=== PATIENT | male | born 1960 | race American Indian/Alaskan Native ===

== ENCOUNTER 2016-05-26 20:57 | Inpatient (IN) | payer OTHER ==
[2016-05-26] MEDS ORDERED: D50W (25GM) IV PRN (21:03)
[2016-05-26] MEDS ORDERED: DULCOLAX PR PRN (21:03)
[2016-05-26] MEDS: GLUCOPHAGE PO SCH (23:17)
[2016-05-26] MEDS: LEVEMIR SUB-Q SCH (23:34)
[2016-05-26] MEDS: NOVOLOG SUB-Q SCH (23:36)
[2016-05-27 04:48] LABS: Basophils % (Auto) 0.4 % (0.0-1.8); Eosinophils % (Auto) 1.3 % (0.0-4.3); Hematocrit 44.7 % (35.5-45.6); Hemoglobin 15.2 gm/dl (11.8-15.2); Mean Corpuscular HGB Conc 34 % (32-34); Mean Corpuscular Hemoglobin 32 pg (28-32); Mean Corpuscular Volume 94 fl (84-94); Platelet Count 306 K/mm3 (140-440); Red Blood Count 4.77 M/mm3 (3.65-5.03); Red Cell Distribution Width 12.1 % (13.2-15.2); White Blood Count 9.2 K/mm3 (4.5-11.0)
[2016-05-27 05:06] LABS: Alanine Aminotransferase 44 units/L (7-56); Albumin 3.8 g/dL (3.9-5); Albumin/Globulin Ratio 1.4 %; Alkaline Phosphatase 72 units/L (35-129); Anion Gap 19 mmol/L; Bilirubin,Total 0.3 mg/dL (0.1-1.2); Blood Urea Nitrogen 16 mg/dL (9-20); Calcium 8.8 mg/dL (8.4-10.2); Carbon Dioxide 24 mmol/L (22-30); Chloride 100.2 mmol/L (98-107); Glucose 170 mg/dL (75-100); Potassium 4.2 mmol/L (3.6-5.0); Sodium 139 mmol/L (137-145); Total Protein 6.5 g/dL (6.3-8.2)
[2016-05-27] MEDS: NOVOLOG SUB-Q SCH ×5 (07:58→23:47)
[2016-05-27] MEDS: LEVEMIR SUB-Q SCH ×2 (09:00→23:47)
[2016-05-27] MEDS: NORVASC PO SCH (09:56)
[2016-05-27] MEDS: LOVENOX SUB-Q SCH (09:56)
[2016-05-27] MEDS: BABY ASPIRIN PO SCH (09:56)
[2016-05-27] MEDS: ZESTRIL PO SCH (09:57)
[2016-05-27] MEDS: GLUCOPHAGE PO SCH ×2 (09:57→17:29)
--- NOTE | 2016-05-27 16:56 | History and Physical Report ---
History of Present Illness Date: 05/27/16 Referring Facility: [facility] Date of admission: 05/26/16 20:57 Chief Complaint: left cerebellar/medulla CVA History of present illness: POST ADMISSION PHYSICIAN EVALUATION ONSET DATE: 05/16/2016 IMPAIRMENT GROUP CODE: 01.9 ETIOLOGIC DIAGNOSIS: left cerebellar/medulla CVA STATUS CHANGES SINCE PREADMISSION SCREENING: PAS has been reviewed. In comparison, pt reports intermittent cough over last several days (not associated with meals); afebrile without any noted leukocytosis. Pt evaluated by LOGISTICS LEAD on today and upgraded to regular diet with thin liquids; will follow closely. Blood sugar noted to be low before dinner; will adjust levemir dose to avoid hypoglycemia. Pt tolerated therapies well and continues with functional deficits. Pt remains an appropriate candidate for IRU admission. PREVIOUS FUNCTIONAL STATUS: Independent with ADLs, gait, transfers CURRENT FUNCTIONAL STATUS: Lindsay to modA for ADLs; per PAS, modA for gait HPI 55 y.o. left handed male who presented to [facility] with complaints of progressive left sided weakness over several days prior to admission; associated blurry vision and gait dysfunction. MRI confirmed left cerebellar/ medulla CVA. Pt was also noted to have dysarthria and dysphagia; placed on mechanical soft diet with nectar thickened liquids. Pt continued with weakness and functional deficits. Pt is now admitted to IRU for aggressive therapies and ongoing medical management. Past History Past Medical History: diabetes, hypertension Past Surgical History: Other (revascularization procedure) Social history: , lives with family, smoking. denies: alcohol abuse Family history: diabetes Medications and Allergies Allergies Allergy/AdvReac Type Severity Reaction Status Date / Time No Known Allergies Allergy Verified 05/26/16 22:33 Home Medications Medication Instructions Recorded Confirmed Last Taken Type No Known Home Medications [No 05/27/16 05/27/16 Unknown History Reported Home Medications] Active Meds: Active Medications Acetaminophen (Tylenol) 650 mg PO Q4H PRN PRN Reason: Pain MILD(1-3)/Fever >100.5/[place] Amlodipine Besylate (Norvasc) 10 mg PO QDAY [facility] Last Admin: 05/27/16 09:56 Dose: 10 mg Aspirin (Baby Aspirin) 81 mg PO QDAY [facility] Last Admin: 05/27/16 09:56 Dose: 81 mg Atorvastatin Calcium (Lipitor) 40 mg PO QHS [facility] Last Admin: 05/26/16 23:18 Dose: 40 mg Bisacodyl (Dulcolax) 10 mg [place] QDAY PRN PRN Reason: Constipation unrelieved by MOM Chlorpromazine HCl (Thorazine) 10 mg PO TID PRN PRN Reason: Hiccups Dextrose (D50w (25gm)) 50 ml IV PRN PRN PRN Reason: Hypoglycemia Enoxaparin Sodium (Lovenox) 40 mg SUB-Q QDAY [facility] Last Admin: 05/27/16 09:56 Dose: 40 mg Insulin Aspart (Novolog) 0 units SUB-Q ACHS [facility] PRN Reason: Protocol Last Admin: 05/27/16 12:20 Dose: 2 units Insulin Detemir (Levemir) 20 units SUB-Q BID [facility] Last Admin: 05/27/16 09:00 Dose: 20 units Lisinopril (Zestril) 5 mg PO QDAY [facility] Last Admin: 05/27/16 09:57 Dose: 5 mg Metformin HCl (Glucophage) 1,000 mg PO BIDDIAB [facility] Last Admin: 05/27/16 09:57 Dose: 1,000 mg Review of Systems All systems: negative Ears, nose, mouth and throat: headache Cardiovascular: lightheadedness, no chest pain Respiratory: cough with sputum Gastrointestinal: no constipation (+BM on today) Genitourinary Male: no dysuria Neurological: numbness (left extremities) Exam - Constitutional Vitals: Vital Signs - 12hr 05/27/16 05/27/16 05/27/16 08:00 09:56 09:57 Temperature 98.3 F Pulse Rate 100 H 100 H Pulse Rate [ 100 H Left Brachial] Respiratory 18 Rate Blood Pressure 135/90 135/90 Blood Pressure 135/90 [Left Arm] O2 Sat by Pulse 100 Oximetry 05/27/16 10:00 Temperature Pulse Rate Pulse Rate [ Left Brachial] Respiratory Rate Blood Pressure Blood Pressure [Left Arm] O2 Sat by Pulse 100 Oximetry General appearance: no acute distress, other (sitting up in bed) - EENT Eyes: EOM intact ENT: hearing intact - Neck Neck: supple, normal ROM - Respiratory Respiratory effort: normal Respiratory: bilateral: CTA - Cardiovascular Rhythm: regular Heart Sounds: Present: S1 & S2 - Extremities Extremities: No edema - Gastrointestinal General gastrointestinal: Present: soft, non-tender, non-distended, normal bowel sounds - Integumentary Integumentary: Present: clear - Musculoskeletal Musculoskeletal: left sided weakness (4/5, decreased coordination) - Neurologic Neurologic: CNII-XII intact, other (decreased sensation on left extremities) - Psychiatric Psychiatric: appropriate mood/affect, intact judgment & insight, memory intact, cooperative - Allied health notes FIMS assesment as documented by PT/OT/ST: Grooming Grooming FIM Score 5. Supervision ([place] applies toothpaste or opens containers.) Toileting Toileting FIM Score 4. Minimal Assistance (Patient = 75% or more. Needs touching.) Social interaction/Memory/Problem solving Social Interaction FIM Score 6. Mod. [place] (Mostly appropriate. May need meds. No supv.) Memory FIM Score 3. Moderate Assistance (Recognizes and remembers 50-74%.) Problem Solving FIM Score 3. Moderate Assistance (Solves routine problems 50-74%.) Transfers Bed/Chair/Wheelchair Transfers 4. Minimal Assistance (Patient = 75% or more. FIM Score Needs touching.) Toilet Transfers FIM Score 3. Moderate Assistance (Patient = 50% or more. Some lifting.) Shower Transfers FIM Score 3. Moderate Assistance (Patient = 50% or more. Some lifting.) Eating Eating FIM Score 5. Supervision/Set-Up (Needs help w/ containers , cutting meat, etc.) Dressing-Upper body Upper Body Dressing FIM Score 5. Supv./Set-Up ([place] sets out clothes or applies pros./orth.) Dressing-lower body Lower Body Dressing FIM Score 3. Moderate Assistance (Patient = 50% or more) - Labs CBC & Chem 7: 05/27/16 04:23 05/27/16 04:23 Labs: Laboratory Results - last 72 hr 05/26/16 05/27/16 05/27/16 23:17 04:23 04:23 WBC 9.2 RBC 4.77 Hgb 15.2 Hct 44.7 MCV 94 MCH 32 MCHC 34 RDW 12.1 L Plt Count 306 Lymph % (Auto) 19.7 Mcclain % (Auto) 9.5 H Eos % (Auto) 1.3 Baso % (Auto) 0.4 Lymph # 1.8 Mcclain # 0.9 H Eos # 0.1 Baso # 0.0 Seg Neutrophils % 69.1 Seg Neutrophils # 6.4 Sodium 139 Potassium 4.2 Chloride 100.2 Carbon Dioxide 24 Anion Gap 19 BUN 16 Creatinine 0.8 Estimated GFR > 60 BUN/Creatinine Ratio 20.00 Glucose 170 H POC Glucose 221 H Calcium 8.8 Total Bilirubin 0.3 AST 19 ALT 44 Alkaline Phosphatase 72 Total Protein 6.5 Albumin 3.8 L Albumin/Globulin Ratio 1.4 05/27/16 05/27/16 06:49 11:39 WBC RBC Hgb Hct MCV MCH MCHC RDW Plt Count Lymph % (Auto) [place]clain % (Auto) Eos % (Auto) Baso % (Auto) Lymph # Mcclain # Eos # Baso # Seg Neutrophils % Seg Neutrophils # Sodium Potassium Chloride Carbon Dioxide Anion Gap BUN Creatinine Estimated GFR BUN/Creatinine Ratio Glucose POC Glucose 149 H 217 H Calcium Total Bilirubin AST ALT Alkaline Phosphatase Total Protein Albumin Albumin/Globulin Ratio Assessment and Plan Assessment and plan: 55 y.o. left handed male with acute left cerebellar/medulla CVA, left hemiparesis, resolved dysphagia, gait dysfunction. The patient is medically stable, however, requires ongoing medical management. Pt is appropriate for inpatient rehabilitation admission and is thought to be able to tolerate at least 3 hours of therapy a day, 5 days a week including 1 hour of physical therapy, 1 hour of occupational therapy, and 1 hour of speech therapy. Patient is able to understand and follow basic directions and has attainable rehab goals. Potential barriers/complications include falls, extension/recurrent CVA , parasthesias, aspiration pneumonia, depression, DVT, PE, hypoglycemia, hypotension, syncope. Plan 1. Rehabilitation- Pt will undergo multidisciplinary/integrative rehab PT/OT/ LOGISTICS LEAD, Nursing. Areas to be addressed include, but are not limited to PT for mobility, strengthening, transfer training, ROM, endurance, stairs, balance; OT for ADLs, household tasks, adaptive equipment; LOGISTICS LEAD for cognition, dysarthria, dysphagia, compensatory techniques; Nursing for carryover of therapies, pain control, CVA education, skin integrity, medication management, bowel/bladder management; Nutrition as needed; assessment services manager for discharge planning and equipment needs. Potential interventions include appropriate assistive device or adaptive equipment. Expected overall level of functional improvement by discharge is Lindsay to supervision for gait, transfers, and ADLs. Pt will tentatively be discharged home with outpatient PT/OT/LOGISTICS LEAD. Estimated length of stay is 1-2 weeks. 2. s/p CVA- continue ASA, statin 3. HTN- continue on current regimen; follow closely to avoid hypotension 4. DM- noted to have hypoglycemia on today; will reduce levemir and continue to follow; continue to hold januvia 5. DVT px- lovenox - Patient Problems (1) CVA (cerebral vascular accident) Current Visit: Yes Status: Acute Qualifiers: CVA mechanism: C Precerebral and cerebral artery: P Laterality of affected vessel: L (2) Left sided cerebral hemisphere cerebrovascular accident (CVA) Current Visit: Yes Status: Acute (3) 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 (CVA) Current Visit: Yes Status: Acute (4) Cognitive deficit following cerebrovascular accident (CVA) Current Visit: Yes Status: Acute (5) Abnormality of gait following cerebrovascular accident (CVA) Current Visit: Yes Status: Acute (6) HTN (hypertension) Current Visit: Yes Status: Chronic Qualifiers: Hypertension type: essential hypertension Qualified Code(s): I10 - Essential (primary) hypertension (7) Diabetes Current Visit: Yes Status: Chronic Qualifiers: Diabetes mellitus type: type 2 Diabetes mellitus complication status: with hyperglycemia Diabetes mellitus complication detail: D Diabetic retinopathy severity: D Proliferative retinopathy type: P Diabetes mellitus macular edema: D Diabetes mellitus long term care pharmacist insulin use: with mcc use Laterality: L Chronic kidney disease stage: C Qualified Code(s): E11.65 - Type 2 diabetes mellitus with hyperglycemia; Z79.4 - longterm (current) use of insulin
[2016-05-27] MEDS: TYLENOL PO PRN (17:27)
[2016-05-28] MEDS: NOVOLOG SUB-Q SCH ×3 (08:35→17:34)
[2016-05-28] MEDS: GLUCOPHAGE PO SCH ×2 (08:36→22:41)
[2016-05-28] MEDS: ZESTRIL PO SCH (08:37)
[2016-05-28] MEDS: NORVASC PO SCH (08:37)
[2016-05-28] MEDS: LOVENOX SUB-Q SCH (08:38)
[2016-05-28] MEDS: BABY ASPIRIN PO SCH (08:38)
[2016-05-28] MEDS: HABITROL TD SCH (08:38)
[2016-05-28] MEDS: LEVEMIR SUB-Q SCH ×2 (08:39→22:44)
[2016-05-29] MEDS: ZESTRIL PO SCH (10:31)
[2016-05-29] MEDS: HABITROL TD SCH (10:31)
[2016-05-29] MEDS: NORVASC PO SCH (10:31)
[2016-05-29] MEDS: GLUCOPHAGE PO SCH ×2 (10:32→17:27)
[2016-05-29] MEDS: BABY ASPIRIN PO SCH (10:32)
[2016-05-29] MEDS: NOVOLOG SUB-Q SCH ×5 (10:32→23:03)
[2016-05-29] MEDS: LOVENOX SUB-Q SCH (10:33)
[2016-05-29] MEDS: LEVEMIR SUB-Q SCH ×2 (10:34→22:56)
[2016-05-29] MEDS ORDERED: PHENERGAN PO PRN (11:00)
--- NOTE | 2016-05-29 14:48 | IRU Plan of Care ---
Interdisciplinary Plan of Care - IP IRU INTERDISCIPLINARY PLAN: [facility] Inpatient Rehab Unit Plan of Care IRU Interdisciplinary Care Plan Start: 05/26/16 22: 06 Freq: Admission then PRN Status: Active Document 05/29/16 09:41 DB (Rec: 05/29/16 09:47 DB [id number]) Interdisciplinary Problem List Interdisciplinary Problem List Interdisciplinary Problem List Impaired Eating/Swallowing Query Text:Answers will Trigger Problems Impaired Bathing/Grooming and Outcomes on Worklist. Impaired Dressing Impaired Mobility Impaired Transfers Impaired Toileting Impaired Expression Impaired Problem Solving Impaired Memory Knowledge Deficits Impaired Home Management Impaired Safety Medications Education Diabetes Education IRU Interdisciplinary Care Plan Therapy Services Therapy Services Will Include: Physical Therapy Query Text:Patient will be seen for a Occupational Therapy minimum of 3 hours of daily therapy 5 Speech Therapy out of 7 days a week. Therapy intensity may be adjusted within a 7 consecutive day period to effectively serve the individual needs of the patient. Treatment Frequency/Intensity/Duration Treatment Frequency 5 days per week Treatment Intensity 1 hour per discipline (PT/OT/ LEAVE MANAGER) daily Treatment Duration 10-14 days Problem Area: Eating/Swallowing Eating/Swallowing Outcomes Consume Least Restrictive Diet Eating/Swallowing Interventions Dysphagia Training Compensatory Strategies Patient/Caregiver Education Problem Area: Bathing/Grooming Bathing/Grooming Outcomes Improve Rodman w/ Grooming Improve Rodman w/ Bathing Bathing/Grooming Interventions ADL Training Problem Area: Dressing Dressing Outcomes Improve Rodman w/ UB Dressing Improve Rodman w/ LB Dressing Dressing Interventions ADL Training Neuromuscular Re-Education Balance Work Patient/Caregiver Education Problem Area: Mobility Mobility Outcomes Improve Rodman w/ Bed Mobility Improve Rodman w/ Ambulation Improve Rodman w/ Stairs /Curb Improve Rodman w/ Wheelchair Mobility Interventions Therapeutic Exercise Neuromuscular Re-Ed. Use of Assistive Devices Patient/Caregiver Education Bed Mobility Work Gait Training W/C Mobility Work Problem Area: Transfers Transfers Outcomes Improve [place]man w/ Bed Transfers Improve [place]man w/ Toilet Transfers Improve Rodman w/ Tub/ Shower Transfers Improve Rodman w/ Car Transfers Transfers Interventions Transfer Training Therapeutic Exercise Neuromuscular Re-Education Activity Tolerance Work Use of Assistive Devices Patient/Caregiver Education Problem Area: Bowel/Bladder Managment Bowel/Bladder Outcomes Bowel/Bladder Interventions Problem Area: Toileting Toileting Outcomes Improve Rodman w/ Toileting Toileting Interventions ADL Training Balance Work Use of Assistive Devices Patient/Caregiver Education Problem Area: Nutrition Nutrition Outcomes Understand and Comply w/ Diet Improve/Maintain Oral Intake Nutrition Interventions Nutritional Counseling Monitor Nutrient Intake Patient/Caregiver Education Problem Area: Comprehension Comprehension Outcomes Comprehension Interventions Problem Area: Expression Expression Outcomes Improve Intelligibility Improve Vocal Quality Expression Interventions Expressive Language Patient/Caregiver Education Problem Area: Problem Solving Problem Solving Outcomes Improve Problem Solving Problem Solving Interventions Cognitive Training Visual/Perceptual Training Safety Education Patient/Caregiver Education Problem Area: Memory Memory Outcomes Use Memory Aids Memory Interventions Cognitive Training Use of Assistive Devices ( Memory Book, etc,) Review of Precautions Patient/Caregiver Education Problem Area: Pain Management Pain Management Outcomes Pain Management Interventions Problem Area: Knowledge Deficits Knowledge Deficits Outcomes Verbalize Precautions Verbalize Understanding of S/S of Stroke Knowledge Deficits Interventions Disease/Injury/Sx. Intervention Education Medication Use Education Disease Management Education Health Maintainence Education Safety Education Problem Area: Skin/Tissue Integrity Skin/Tissue Integrity Outcomes Demonstrate Understanding of Pressure Relief Skin/Tissue Integrity Interventions Pressure Relief Instruction Positioning/Turning Problem Area: Social Interaction Social Interaction Outcomes Social Interaction Interventions Problem Area: Adjustment to Disability Adjustment to Disability Outcomes Adjustment to Disability Interventions Problem Area: Discharge Concerns Discharge Concerns Outcomes Discharge Home w/ Necessary Equipment Have Home Health/Outpatient Services Discharge Concerns Interventions Discharge Planning Family/Caregiver Conference Family/Caregiver Training Problem Area: Community Reintegration Community Reintegration Outcomes Demonstrate Understanding of Community Resources Community Reintegration Interventions Provide Community Resources Problem Area: Home Management Home Management Outcomes Home Management Interventions Problem Area: Safety Safety Outcomes Provide Safe Environment Perform Selfcare Safely Demonstrate Good Safety w/ Transfers/Mobility Safety Interventions Identify Fall Risk [place] Pt. to Environment Reduce Environmental Hazards Problem Area: Medication Education Medication Education Outcomes Patient/Caregiver will Verbalize Understanding of Medications Medication Education Interventions Explain Administration/Side Effects/Interactions Problem Area: Diabetes Education Diabetes Education Outcomes Demonstrate Knowledge of Resources Availlable in Diabetic Ed. Folder Diabetes Education Interventions Give Pt. Diabetes Education Folder Discuss Pathophysiology of Diabetes Problem Area: Oxygenation Oxygenation Outcomes Oxygenation Interventions Problem Area: Cardiovascular Cardiovascular Outcomes Cardiovascular Interventions Physician Only Medical Prognosis and Rehabilitation Patient demonstrates good Potential (Completed by Physician) rehab potential. Medical Prognosis: Good This plan of care has been developed based on the findings from the pre- admission assessment, post admission physician evaluation, information gathered from the assessments from all therapy disciplines and other pertinent clinicians. The plan of care has been reviewed and discussed in collaboration with the interdisciplinary team. The plan of care will be reviewed and updated at least weekly. 55 y.o. left handed male with acute left cerebellar/medulla CVA, left hemiparesis, resolved dysphagia, gait dysfunction. The patient remains at risk for falls, extension/recurrent CVA, parasthesias, aspiration pneumonia, depression, DVT, PE, hypoglycemia, hypotension, syncope. Pt reports intermittent nausea, hiccups; prn medications available to treat symptomatically. BP stable; blood sugars elevated, meds adjusted. Pt is tolerating therapies well; continues with functional deficits. Pt remains an appropriate candidate for IRU admission.
--- NOTE | 2016-05-29 14:52 | Progress Note ---
Assessment and Plan 55 y.o. left handed male with acute left cerebellar/medulla CVA, left hemiparesis - s/p CVA- ASA, statin - gait dysfunction secondary to CVA- ongoing gait training with PT, ambulated up to 59 feet - HTN- controlled on current regimen - DM- no further hypoglycemia; will slowly increase levemir towards home dose; continue to hold januvia - DVT px- lovenox - Patient Problems (1) CVA (cerebral vascular accident) Current Visit: Yes Status: Acute Qualifiers: CVA mechanism: C Precerebral and cerebral artery: P Laterality of affected vessel: L (2) Hemiparesis affecting left side as late effect of cerebrovascular accident ( CVA) Current Visit: Yes Status: Acute (3) 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 (CVA) Current Visit: Yes Status: Acute (4) Cognitive deficit following cerebrovascular accident (CVA) Current Visit: Yes Status: Acute (5) Abnormality of gait following cerebrovascular accident (CVA) Current Visit: Yes Status: Acute (6) HTN (hypertension) Current Visit: Yes Status: Chronic Qualifiers: Hypertension type: essential hypertension Qualified Code(s): I10 - Essential (primary) hypertension (7) Diabetes Current Visit: Yes Status: Chronic Qualifiers: Diabetes mellitus type: type 2 Diabetes mellitus complication status: with hyperglycemia Diabetes mellitus complication detail: D Diabetic retinopathy severity: D Proliferative retinopathy type: P Diabetes mellitus macular edema: D Diabetes mellitus intermodal dispatcher insulin use: with intermodal dispatcher use Laterality: L Chronic kidney disease stage: C Qualified Code(s): E11.65 - Type 2 diabetes mellitus with hyperglycemia; Z79.4 - correction (current) use of insulin Subjective Date of service: 05/29/16 Principal diagnosis: acute left cerebellar/medulla CVA Interval history: Pt seen in OT gym on this AM; F/U IPR course, s/p acute left cerebellar/medulla CVA. Pt continues with intermittent hiccups; some nausea on this AM Objective - Constitutional General appearance: Present: no acute distress, other ( present) - EENT Eyes: EOM intact ENT: hearing intact - Neck Neck: supple, normal ROM - Respiratory Respiratory effort: normal Respiratory: bilateral: CTA - Cardiovascular Rhythm: regular Heart Sounds: Present: S1 & S2 Extremities: No edema - Gastrointestinal General gastrointestinal: Present: soft, non-tender, non-distended, normal bowel sounds - Integumentary Integumentary: clear - Musculoskeletal Musculoskeletal: left sided weakness - Neurologic Neurologic: CNII-XII intact - Psychiatric Psychiatric: appropriate mood/affect, intact judgment & insight, memory intact, cooperative - Allied health notes Allied health notes reviewed: PT (min-modA for bed mobility, transfers, gait and stairs), OT (s/u to modA for ADLs) - Labs CBC & Chem 7: 05/27/16 04:23 05/27/16 04:23 Labs: Abnormal lab results 05/28/16 05/28/16 05/28/16 Range/Units 11:59 17:00 21:45 POC Glucose 234 H 207 H 333 H (70-105) 05/29/16 05/29/16 Range/Units 07:18 11:21 POC Glucose 211 H 284 H (70-105)
[2016-05-29] MEDS: THORAZINE PO PRN ×2 (14:59→20:55)
[2016-05-29] MEDS ORDERED: DESYREL PO PRN (21:59)
[2016-05-30] MEDS: ZESTRIL PO SCH (11:29)
[2016-05-30] MEDS: GLUCOPHAGE PO SCH ×2 (11:29→18:19)
[2016-05-30] MEDS: BABY ASPIRIN PO SCH (11:30)
[2016-05-30] MEDS: NORVASC PO SCH (11:30)
[2016-05-30] MEDS: LOVENOX SUB-Q SCH (11:30)
[2016-05-30] MEDS: NOVOLOG SUB-Q SCH ×4 (11:31→22:45)
[2016-05-30] MEDS: LEVEMIR SUB-Q SCH ×2 (11:32→22:44)
[2016-05-30] MEDS: HABITROL TD SCH (11:33)
[2016-05-30] MEDS ORDERED: AMBIEN PO PRN (13:00)
--- NOTE | 2016-05-30 16:30 | Progress Note ---
Assessment and Plan 55 y.o. left handed male with acute left cerebellar/medulla CVA, left hemiparesis - s/p CVA- ASA, statin - gait dysfunction secondary to CVA- tolerating gait training - hiccups- prn thorazine - HTN- add metoprolol for tachycardia; follow for hypotension - DM- elevated blood sugar on today; follow - DVT px- lovenox - Patient Problems (1) CVA (cerebral vascular accident) Current Visit: Yes Status: Acute Qualifiers: CVA mechanism: C Precerebral and cerebral artery: P Laterality of affected vessel: L (2) Hemiparesis affecting left side as late effect of cerebrovascular accident ( CVA) Current Visit: Yes Status: Acute (3) 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 (CVA) Current Visit: Yes Status: Acute (4) Cognitive deficit following cerebrovascular accident (CVA) Current Visit: Yes Status: Acute (5) Abnormality of gait following cerebrovascular accident (CVA) Current Visit: Yes Status: Acute (6) HTN (hypertension) Current Visit: Yes Status: Chronic Qualifiers: Hypertension type: essential hypertension Qualified Code(s): I10 - Essential (primary) hypertension (7) Diabetes Current Visit: Yes Status: Chronic Qualifiers: Diabetes mellitus type: type 2 Diabetes mellitus complication status: with hyperglycemia Diabetes mellitus complication detail: D Diabetic retinopathy severity: D Proliferative retinopathy type: P Diabetes mellitus macular edema: D Diabetes mellitus long lines operator insulin use: with fdc use Laterality: L Chronic kidney disease stage: C Qualified Code(s): E11.65 - Type 2 diabetes mellitus with hyperglycemia; Z79.4 - long term care social worker (current) use of insulin Subjective Date of service: 05/30/16 Principal diagnosis: acute left cerebellar/medulla CVA Interval history: Pt seen in room on today; F/U IPR course, s/p acute left cerebellar/medulla CVA. Reports some drowsiness after getting sleep aide late last night; noted to have tachycardia, denies anxiety, chest pain or shortness of breath Objective - Constitutional Vitals: Vital Signs - 12hr 05/30/16 05/30/16 08:00 11:29 Temperature 97.9 F Pulse Rate 106 H Pulse Rate [ 106 H Left Brachial] Respiratory 20 Rate Blood Pressure 134/88 Blood Pressure 134/88 [Left Arm] O2 Sat by Pulse 99 Oximetry General appearance: Present: no acute distress - EENT Eyes: EOM intact ENT: hearing intact - Neck Neck: supple, normal ROM - Respiratory Respiratory effort: normal Respiratory: bilateral: CTA - Cardiovascular Rhythm: regular Heart Sounds: Present: S1 & S2 Extremities: No edema - Gastrointestinal General gastrointestinal: Present: soft, non-tender, non-distended, normal bowel sounds - Integumentary Integumentary: clear - Musculoskeletal Musculoskeletal: left sided weakness - Neurologic Neurologic: CNII-XII intact - Psychiatric Psychiatric: appropriate mood/affect, intact judgment & insight, memory intact, cooperative - Allied health notes Allied health notes reviewed: PT (modA for stairs; min-modA for gait ), OT ( modA for transfers) - Labs CBC & Chem 7: 05/27/16 04:23 05/27/16 04:23 Labs: Abnormal lab results 05/29/16 05/29/16 05/30/16 Range/Units 16:48 21:35 06:10 POC Glucose 195 H 269 H 253 H (70-105) 05/30/16 Range/Units 11:57 POC Glucose 378 H (70-105)
[2016-05-30] MEDS: THORAZINE PO PRN (18:20)
[2016-05-30] MEDS: LOPRESSOR PO SCH (22:42)
[2016-05-31] MEDS: NOVOLOG SUB-Q SCH ×4 (09:53→23:22)
[2016-05-31] MEDS: BABY ASPIRIN PO SCH (09:54)
[2016-05-31] MEDS: GLUCOPHAGE PO SCH ×2 (09:54→17:35)
[2016-05-31] MEDS: NORVASC PO SCH (09:54)
[2016-05-31] MEDS: LOVENOX SUB-Q SCH (09:54)
[2016-05-31] MEDS: HABITROL TD SCH (09:55)
[2016-05-31] MEDS: LOPRESSOR PO SCH ×2 (09:56→23:17)
[2016-05-31] MEDS: LEVEMIR SUB-Q SCH ×2 (10:33→23:18)
--- NOTE | 2016-05-31 16:12 | Progress Note ---
Assessment and Plan 55 y.o. left handed male with acute left cerebellar/medulla CVA, left hemiparesis - s/p CVA- ASA, statin - gait dysfunction secondary to CVA- tolerating gait training - hiccups- resolved; prn thorazine - HTN- stable; improved tachycardia - DM- levemir increased on today; continue to follow - DVT px- lovenox - Patient Problems (1) CVA (cerebral vascular accident) Current Visit: Yes Status: Acute Qualifiers: CVA mechanism: C Precerebral and cerebral artery: P Laterality of affected vessel: L (2) Hemiparesis affecting left side as late effect of cerebrovascular accident ( CVA) Current Visit: Yes Status: Acute (3) 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 (CVA) Current Visit: Yes Status: Acute (4) Cognitive deficit following cerebrovascular accident (CVA) Current Visit: Yes Status: Acute (5) Abnormality of gait following cerebrovascular accident (CVA) Current Visit: Yes Status: Acute (6) HTN (hypertension) Current Visit: Yes Status: Chronic Qualifiers: Hypertension type: essential hypertension Qualified Code(s): I10 - Essential (primary) hypertension (7) Diabetes Current Visit: Yes Status: Chronic Qualifiers: Diabetes mellitus type: type 2 Diabetes mellitus complication status: with hyperglycemia Diabetes mellitus complication detail: D Diabetic retinopathy severity: D Proliferative retinopathy type: P Diabetes mellitus macular edema: D 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 Pt complains of nasal congestion; denies any chest paint/SOB; no headache. Hiccups also resolved overnight Objective - Constitutional Vitals: Vital Signs - 12hr 05/31/16 05/31/16 05/31/16 08:00 09:54 10:00 Temperature 98.2 F Pulse Rate 94 H Pulse Rate [ 94 H 94 H Left Brachial] Respiratory 16 Rate Blood Pressure 144/66 Blood Pressure 144/66 [Left Arm] O2 Sat by Pulse 100 100 Oximetry General appearance: Present: no acute distress - EENT Eyes: EOM intact ENT: hearing intact - Neck Neck: supple, normal ROM - Respiratory Respiratory effort: normal Respiratory: bilateral: CTA - Cardiovascular Rhythm: regular Heart Sounds: Present: S1 & S2 Extremities: No edema - Gastrointestinal General gastrointestinal: Present: soft, non-tender, non-distended, normal bowel sounds - Integumentary Integumentary: clear - Musculoskeletal Musculoskeletal: left sided weakness - Neurologic Neurologic: CNII-XII intact - Psychiatric Psychiatric: appropriate mood/affect, cooperative - Allied health notes Allied health notes reviewed: OT (supervision to Kathryn for ADLs) - Labs CBC & Chem 7: 05/27/16 04:23 05/27/16 04:23 Labs: Abnormal lab results 05/30/16 05/30/16 05/31/16 Range/Units 16:44 22:14 06:23 POC Glucose 267 H 245 H 239 H (70-105) 05/31/16 Range/Units 12:02 POC Glucose 364 H (70-105)
[2016-05-31] MEDS: FLONASE NS SCH (17:39)
[2016-05-31] MEDS ORDERED: AMBIEN PO SCH (21:00)
[2016-06-01] MEDS: LOVENOX SUB-Q SCH (12:04)
[2016-06-01] MEDS: GLUCOPHAGE PO SCH ×2 (12:07→17:19)
[2016-06-01] MEDS: BABY ASPIRIN PO SCH (12:07)
[2016-06-01] MEDS: LOPRESSOR PO SCH ×2 (12:08→20:48)
[2016-06-01] MEDS: TYLENOL PO PRN (12:10)
[2016-06-01] MEDS: NORVASC PO SCH (12:11)
[2016-06-01] MEDS: HABITROL TD SCH (12:17)
[2016-06-01] MEDS: NOVOLOG SUB-Q SCH ×4 (12:18→20:50)
[2016-06-01] MEDS: FLONASE NS SCH (12:18)
[2016-06-01] MEDS: LEVEMIR SUB-Q SCH ×2 (12:25→20:50)
--- NOTE | 2016-06-01 15:51 | Progress Note ---
Assessment and Plan 55 y.o. left handed male with acute left cerebellar/medulla CVA, left hemiparesis - s/p CVA- ASA, statin - gait dysfunction secondary to CVA- progressed to CGA - HTN- controlled - DM- stable on current regimen - insomnia- ambien as ordered at 8pm; discussed with nursing - DVT px- lovenox - team conference held on today- pt is Lindsay for eating; supervision for grooming , bathing, dressing; Kathryn for toileting, toilet, shower transfers; CGA for sit- stand transfers; CGA for 90 feet with RW; CGA for stairs. Barriers- insomnia and daytime drowsiness. Tentative d/c date is 06/09 - Patient Problems (1) CVA (cerebral vascular accident) Current Visit: Yes Status: Acute Qualifiers: CVA mechanism: C Precerebral and cerebral artery: P Laterality of affected vessel: L (2) Hemiparesis affecting left side as late effect of cerebrovascular accident ( CVA) Current Visit: Yes Status: Acute (3) 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 (CVA) Current Visit: Yes Status: Acute (4) Cognitive deficit following cerebrovascular accident (CVA) Current Visit: Yes Status: Acute (5) Abnormality of gait following cerebrovascular accident (CVA) Current Visit: Yes Status: Acute (6) HTN (hypertension) Current Visit: Yes Status: Chronic Qualifiers: Hypertension type: essential hypertension Qualified Code(s): I10 - Essential (primary) hypertension (7) Diabetes Current Visit: Yes Status: Chronic Qualifiers: Diabetes mellitus type: type 2 Diabetes mellitus complication status: with hyperglycemia Diabetes mellitus complication detail: D Diabetic retinopathy severity: D Proliferative retinopathy type: P Diabetes mellitus macular edema: D Diabetes mellitus long-term insulin use: with long-term use Laterality: L Chronic kidney disease stage: C Qualified Code(s): E11.65 - Type 2 diabetes mellitus with hyperglycemia; 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 Not getting sleep aid early enough at night; causing AM drowsiness, +BM on yesterday Objective - Constitutional Vitals: Vital Signs - 12hr 06/01/16 06/01/1606/01/17 07:30 12:08 12:11 Temperature 97.9 F Pulse Rate 92 H Pulse Rate [ 92 H Left Brachial] Respiratory 20 Rate Blood Pressure 133/85 133/85 Blood Pressure 133/85 [Left Arm] O2 Sat by Pulse 98 Oximetry General appearance: Present: mild distress (due to AM drowsiness) - EENT Eyes: EOM intact ENT: hearing intact - Neck Neck: supple, normal ROM - Respiratory Respiratory effort: normal Extremities: No edema - Integumentary Integumentary: clear - Musculoskeletal Musculoskeletal: left sided weakness - Neurologic Neurologic: CNII-XII intact - Psychiatric Psychiatric: appropriate mood/affect, cooperative - Labs CBC & Chem 7: 05/27/16 04:23 05/27/16 04:23 Labs: Abnormal lab results 05/31/16 05/31/16 06/01/16 Range/Units 17:12 21:39 07:03 POC Glucose 235 H 200 H 190 H (70-105) 06/01/16 Range/Units 11:58 POC Glucose 308 H (70-105)
[2016-06-01] MEDS: AMBIEN PO SCH (20:45)
[2016-06-02] MEDS: NOVOLOG SUB-Q SCH ×4 (08:43→21:48)
[2016-06-02] MEDS: LOVENOX SUB-Q SCH (08:43)
[2016-06-02] MEDS: HABITROL TD SCH (08:44)
[2016-06-02] MEDS: FLONASE NS SCH (08:45)
[2016-06-02] MEDS: TYLENOL PO PRN ×3 (08:45→21:10)
[2016-06-02] MEDS: NORVASC PO SCH (08:46)
[2016-06-02] MEDS: BABY ASPIRIN PO SCH (08:46)
[2016-06-02] MEDS: LOPRESSOR PO SCH ×2 (08:47→21:06)
[2016-06-02] MEDS: GLUCOPHAGE PO SCH ×2 (08:47→17:02)
[2016-06-02] MEDS: LEVEMIR SUB-Q SCH ×2 (08:49→21:49)
--- NOTE | 2016-06-02 16:15 | Progress Note ---
Assessment and Plan 55 y.o. left handed male with acute left cerebellar/medulla CVA, left hemiparesis - s/p CVA- ASA, statin - gait dysfunction secondary to CVA- CGA with gait and transfers - HTN- consider increasing lopressor to 25mg BID if remains elevated - DM- increase to 18U BID; pt and will need education on administering insulin as this is a new medication; nursing notified to provide education - insomnia- ambien - DVT px- lovenox - Patient Problems (1) CVA (cerebral vascular accident) Current Visit: Yes Status: Acute Qualifiers: CVA mechanism: C Precerebral and cerebral artery: P Laterality of affected vessel: L (2) Hemiparesis affecting left side as late effect of cerebrovascular accident ( CVA) Current Visit: Yes Status: Acute (3) 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 (CVA) Current Visit: Yes Status: Acute (4) Cognitive deficit following cerebrovascular accident (CVA) Current Visit: Yes Status: Acute (5) Abnormality of gait following cerebrovascular accident (CVA) Current Visit: Yes Status: Acute (6) HTN (hypertension) Current Visit: Yes Status: Chronic Qualifiers: Hypertension type: essential hypertension Qualified Code(s): I10 - Essential (primary) hypertension (7) Diabetes Current Visit: Yes Status: Chronic Qualifiers: Diabetes mellitus type: type 2 Diabetes mellitus complication status: with hyperglycemia Diabetes mellitus complication detail: D Diabetic retinopathy severity: D Proliferative retinopathy type: P Diabetes mellitus macular edema: D Diabetes mellitus nursing home insulin use: without termite technician use Laterality: L Chronic kidney disease stage: C Qualified Code(s): E11.65 - Type 2 diabetes mellitus with hyperglycemia Subjective Date of service: 06/02/16 Principal diagnosis: acute left cerebellar/medulla CVA Interval history: Pt seen this AM; F/U IPR course, s/p acute left cerebellar/medulla CVA. Much improved sleep overnight; educated about blood sugars, new to insulin during acute care course Objective - Constitutional Vitals: Vital Signs - 12hr 06/02/16 06/02/16 06/02/16 07:37 08:46 08:47 Temperature 97.6 F Pulse Rate 101 H 101 H Pulse Rate [ 101 H Left Brachial] Respiratory 20 Rate Blood Pressure 158/97 158/97 Blood Pressure 158/97 [Left Arm] O2 Sat by Pulse 98 Oximetry General appearance: Present: no acute distress - EENT Eyes: EOM intact ENT: hearing intact - Neck Neck: supple, normal ROM - Respiratory Respiratory effort: normal Respiratory: bilateral: CTA - Cardiovascular Rhythm: regular Heart Sounds: Present: S1 & S2 Extremities: No edema - Gastrointestinal General gastrointestinal: Present: soft, non-tender, non-distended, normal bowel sounds - Integumentary Integumentary: clear - Musculoskeletal Musculoskeletal: left sided weakness - Neurologic Neurologic: CNII-XII intact - Psychiatric Psychiatric: appropriate mood/affect, cooperative - Allied health notes Allied health notes reviewed: nursing (Kathryn for toileting), PT (CGA for transfers and gait) - Labs CBC & Chem 7: 05/27/16 04:23 05/27/16 04:23 Labs: Abnormal lab results 06/01/16 06/01/16 06/01/16 Range/Units 17:13 20:20 21:37 POC Glucose 276 H 178 H 166 H (70-105) 06/02/16 06/02/16 Range/Units 06:58 11:30 POC Glucose 249 H 218 H (70-105)
[2016-06-02] MEDS: AMBIEN PO SCH (21:05)
[2016-06-03] MEDS: FLONASE NS SCH (08:24)
[2016-06-03] MEDS: LOVENOX SUB-Q SCH (08:24)
[2016-06-03] MEDS: GLUCOPHAGE PO SCH ×2 (08:24→16:12)
[2016-06-03] MEDS: BABY ASPIRIN PO SCH (08:24)
[2016-06-03] MEDS: NORVASC PO SCH (08:25)
[2016-06-03] MEDS: HABITROL TD SCH (08:25)
[2016-06-03] MEDS: LOPRESSOR PO SCH ×3 (08:26→22:07)
[2016-06-03] MEDS: LEVEMIR SUB-Q SCH ×2 (08:27→22:08)
[2016-06-03] MEDS: NOVOLOG SUB-Q SCH ×4 (08:27→22:08)
--- NOTE | 2016-06-03 13:17 | Progress Note ---
Assessment and Plan 55 y.o. left handed male with acute left cerebellar/medulla CVA, left hemiparesis - s/p CVA- ASA, statin - gait dysfunction secondary to CVA- ongoing gait training with PT - HTN- lopressor increased to 25mg BID for better control - DM- levemir 18U BID; metformin 1000mg BID - insomnia- ambien - headache- tylenol, percocet prn - DVT px- lovenox - Patient Problems (1) CVA (cerebral vascular accident) Current Visit: Yes Status: Acute Qualifiers: CVA mechanism: C Precerebral and cerebral artery: P Laterality of affected vessel: L (2) Hemiparesis affecting left side as late effect of cerebrovascular accident ( CVA) Current Visit: Yes Status: Acute (3) 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 (CVA) Current Visit: Yes Status: Acute (4) Cognitive deficit following cerebrovascular accident (CVA) Current Visit: Yes Status: Acute (5) Abnormality of gait following cerebrovascular accident (CVA) Current Visit: Yes Status: Acute (6) HTN (hypertension) Current Visit: Yes Status: Chronic Qualifiers: Hypertension type: essential hypertension Qualified Code(s): I10 - Essential (primary) hypertension (7) Diabetes Current Visit: Yes Status: Chronic Qualifiers: Diabetes mellitus type: type 2 Diabetes mellitus complication status: with hyperglycemia Diabetes mellitus complication detail: D Diabetic retinopathy severity: D Proliferative retinopathy type: P Diabetes mellitus macular edema: D 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 C/o headache, not relieved by tylenol Objective - Constitutional Vitals: Vital Signs - 12hr 06/03/16 06/03/16 06/03/16 08:25 08:26 08:38 Pulse Rate 94 H 94 H Pulse Rate [ 94 H Left Radial] Respiratory 18 Rate Blood Pressure 159/96 159/96 Blood Pressure 159/96 [Left Arm] General appearance: Present: mild distress (secondary to headache) - EENT Eyes: EOM intact ENT: hearing intact - Neck Neck: supple, normal ROM - Respiratory Respiratory effort: normal Extremities: No edema - Musculoskeletal Musculoskeletal: left sided weakness - Neurologic Neurologic: CNII-XII intact - Psychiatric Psychiatric: cooperative - Labs CBC & Chem 7: 05/27/16 04:23 05/27/16 04:23 Labs: Abnormal lab results 06/02/16 06/02/16 06/03/16 Range/Units 16:35 21:31 06:25 POC Glucose 235 H 194 H 209 H (70-105)
[2016-06-03] MEDS: PERCOCET 5/325 PO PRN ×2 (16:11→23:26)
[2016-06-03] MEDS: TYLENOL PO PRN (20:39)
[2016-06-03] MEDS: AMBIEN PO SCH (22:06)
[2016-06-04] MEDS: PERCOCET 5/325 PO PRN ×2 (06:15→16:02)
[2016-06-04] MEDS: FLONASE NS SCH (09:21)
[2016-06-04] MEDS: LOVENOX SUB-Q SCH (09:22)
[2016-06-04] MEDS: BABY ASPIRIN PO SCH (09:23)
[2016-06-04] MEDS: HABITROL TD SCH (09:23)
[2016-06-04] MEDS: GLUCOPHAGE PO SCH ×2 (09:23→17:14)
[2016-06-04] MEDS: NORVASC PO SCH (09:24)
[2016-06-04] MEDS: LEVEMIR SUB-Q SCH ×2 (09:24→23:05)
[2016-06-04] MEDS: NOVOLOG SUB-Q SCH ×5 (09:25→22:24)
[2016-06-04] MEDS: LOPRESSOR PO SCH ×2 (09:25→22:22)
[2016-06-04] MEDS: FIORICET PO PRN ×2 (13:14→20:50)
[2016-06-04] MEDS: AMBIEN PO SCH (20:51)
[2016-06-05] MEDS: PERCOCET 5/325 PO PRN ×4 (00:45→22:56)
[2016-06-05] MEDS: LEVEMIR SUB-Q SCH ×2 (09:10→22:58)
[2016-06-05] MEDS: BABY ASPIRIN PO SCH (09:11)
[2016-06-05] MEDS: GLUCOPHAGE PO SCH ×2 (09:11→18:15)
[2016-06-05] MEDS: NORVASC PO SCH (09:12)
[2016-06-05] MEDS: LOVENOX SUB-Q SCH (09:12)
[2016-06-05] MEDS: LOPRESSOR PO SCH ×2 (09:12→22:58)
[2016-06-05] MEDS: FIORICET PO PRN ×2 (09:13→18:15)
[2016-06-05] MEDS: HABITROL TD SCH (09:13)
[2016-06-05] MEDS: FLONASE NS SCH (09:16)
[2016-06-05] MEDS: NOVOLOG SUB-Q SCH ×4 (09:30→22:59)
[2016-06-05] MEDS: CLARITIN PO SCH (12:54)
--- NOTE | 2016-06-05 16:32 | Progress Note ---
Assessment and Plan 55 y.o. left handed male with acute left cerebellar/medulla CVA, left hemiparesis - s/p CVA- ASA, statin - gait dysfunction secondary to CVA- min-modA for gait, ambulating with RW - HTN- stable - DM- levemir increased to 20U BID; metformin 1000mg BID - insomnia- ambien - headache- claritin added for sinus congestion; prn pain meds - DVT px- lovenox - Patient Problems (1) CVA (cerebral vascular accident) Current Visit: Yes Status: Acute Qualifiers: CVA mechanism: C Precerebral and cerebral artery: P Laterality of affected vessel: L (2) Hemiparesis affecting left side as late effect of cerebrovascular accident ( CVA) Current Visit: Yes Status: Acute (3) 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 (CVA) Current Visit: Yes Status: Acute (4) Cognitive deficit following cerebrovascular accident (CVA) Current Visit: Yes Status: Acute (5) Abnormality of gait following cerebrovascular accident (CVA) Current Visit: Yes Status: Acute (6) HTN (hypertension) Current Visit: Yes Status: Chronic Qualifiers: Hypertension type: essential hypertension Qualified Code(s): I10 - Essential (primary) hypertension (7) Diabetes Current Visit: Yes Status: Chronic Qualifiers: Diabetes mellitus type: type 2 Diabetes mellitus complication status: with hyperglycemia Diabetes mellitus complication detail: D Diabetic retinopathy severity: D Proliferative retinopathy type: P Diabetes mellitus macular edema: D Diabetes mellitus jail insulin use: without jail use Laterality: L Chronic kidney disease stage: C Qualified Code(s): E11.65 - Type 2 diabetes mellitus with hyperglycemia Subjective Date of service: 06/05/16 Principal diagnosis: acute left cerebellar/medulla CVA Interval history: Pt seen in gym and in room this AM; F/U IPR course, s/p acute left cerebellar/ medulla CVA. ongoing intermittent headache; ?associated sinus congestion Objective - Constitutional Vitals: Vital Signs - 12hr 06/05/16 06/05/16 06/05/16 07:52 08:00 09:12 Temperature 97.6 F Pulse Rate 88 Pulse Rate [ 88 Left Brachial] Respiratory 20 20 Rate Blood Pressure 142/89 Blood Pressure 142/89 [Left Arm] O2 Sat by Pulse 98 Oximetry 06/05/16 06/05/16 09:13 15:19 Temperature Pulse Rate Pulse Rate [ Left Brachial] Respiratory 20 20 Rate Blood Pressure Blood Pressure [Left Arm] O2 Sat by Pulse Oximetry General appearance: Present: mild distress (headache rated 7/10) - EENT Eyes: EOM intact ENT: hearing intact - Neck Neck: supple, normal ROM - Respiratory Respiratory effort: normal Respiratory: bilateral: CTA - Cardiovascular Rhythm: regular Heart Sounds: Present: S1 & S2 Extremities: No edema - Gastrointestinal General gastrointestinal: Present: soft, non-tender, non-distended, normal bowel sounds - Integumentary Integumentary: clear - Musculoskeletal Musculoskeletal: left sided weakness - Neurologic Neurologic: CNII-XII intact - Psychiatric Psychiatric: intact judgment & insight, memory intact, cooperative (flat affect) - Allied health notes Allied health notes reviewed: PT (Kathryn for transfers; min-modA for gait), OT ( Lindsay for dressing) - Labs CBC & Chem 7: 05/27/16 04:23 05/27/16 04:23 Labs: Abnormal lab results 06/04/16 06/04/16 06/05/16 Range/Units 16:39 21:31 07:14 POC Glucose 221 H 204 H 210 H (70-105) 06/05/16 Range/Units 12:10 POC Glucose 295 H (70-105)
[2016-06-05] MEDS: AMBIEN PO SCH (22:57)
[2016-06-06 05:14] LABS: Hematocrit 41.2 % (35.5-45.6); Hemoglobin 14.4 gm/dl (11.8-15.2); Mean Corpuscular HGB Conc 35 % (32-34); Mean Corpuscular Hemoglobin 32 pg (28-32); Mean Corpuscular Volume 92 fl (84-94); Platelet Count 281 K/mm3 (140-440); Red Blood Count 4.48 M/mm3 (3.65-5.03); Red Cell Distribution Width 12.1 % (13.2-15.2); White Blood Count 9.6 K/mm3 (4.5-11.0)
[2016-06-06 05:25] LABS: Anion Gap 18 mmol/L; Blood Urea Nitrogen 12 mg/dL (9-20); Calcium 8.9 mg/dL (8.4-10.2); Carbon Dioxide 23 mmol/L (22-30); Chloride 102.2 mmol/L (98-107); Glucose 336 mg/dL (75-100); Potassium 4.2 mmol/L (3.6-5.0); Sodium 139 mmol/L (137-145)
[2016-06-06] MEDS: FIORICET PO PRN ×2 (06:24→16:07)
[2016-06-06] MEDS: NORVASC PO SCH (08:35)
[2016-06-06] MEDS: BABY ASPIRIN PO SCH (09:05)
[2016-06-06] MEDS: HABITROL TD SCH (09:05)
[2016-06-06] MEDS: GLUCOPHAGE PO SCH ×2 (09:05→17:11)
[2016-06-06] MEDS: CLARITIN PO SCH (09:06)
[2016-06-06] MEDS: LOVENOX SUB-Q SCH (09:06)
[2016-06-06] MEDS: NOVOLOG SUB-Q SCH ×3 (09:07→17:11)
[2016-06-06] MEDS: LOPRESSOR PO SCH ×2 (09:07→23:19)
[2016-06-06] MEDS: LEVEMIR SUB-Q SCH ×2 (09:08→23:21)
[2016-06-06] MEDS: FLONASE NS SCH (09:49)
--- NOTE | 2016-06-06 17:33 | Progress Note ---
Assessment and Plan 55 y.o. left handed male with acute left cerebellar/medulla CVA, left hemiparesis - s/p CVA- ASA, statin - gait dysfunction secondary to CVA- min-modA for gait, ambulating with RW - HTN- stable - DM- maintain on levemir 20U BID, metformin 1000mg BID - insomnia- ambien - headache- improved; continue claritin, flonase daily; prn fioricet - DVT px- lovenox - Patient Problems (1) CVA (cerebral vascular accident) Current Visit: Yes Status: Acute Qualifiers: CVA mechanism: C Precerebral and cerebral artery: P Laterality of affected vessel: L (2) Hemiparesis affecting left side as late effect of cerebrovascular accident ( CVA) Current Visit: Yes Status: Acute (3) 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 (CVA) Current Visit: Yes Status: Acute (4) Cognitive deficit following cerebrovascular accident (CVA) Current Visit: Yes Status: Acute (5) Abnormality of gait following cerebrovascular accident (CVA) Current Visit: Yes Status: Acute (6) HTN (hypertension) Current Visit: Yes Status: Chronic Qualifiers: Hypertension type: essential hypertension Qualified Code(s): I10 - Essential (primary) hypertension (7) Diabetes Current Visit: Yes Status: Chronic Qualifiers: Diabetes mellitus type: type 2 Diabetes mellitus complication status: with hyperglycemia Diabetes mellitus complication detail: D Diabetic retinopathy severity: D Proliferative retinopathy type: P Diabetes mellitus macular edema: D 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 much improved headache on today Objective - Constitutional Vitals: Vital Signs - 12hr 06/06/16 06/06/16 06/06/16 07:24 08:00 09:07 Temperature 98.2 F Pulse Rate 103 H Pulse Rate [ 103 H Left Brachial] Respiratory 18 20 Rate Blood Pressure 122/81 Blood Pressure 122/81 [Left Arm] O2 Sat by Pulse 97 Oximetry 06/06/16 06/06/16 06/06/16 16:00 16:07 17:07 Temperature 97.6 F Pulse Rate Pulse Rate [ 105 H Left Brachial] Respiratory 20 20 20 Rate Blood Pressure Blood Pressure 131/86 [Left Arm] O2 Sat by Pulse 100 Oximetry General appearance: Present: no acute distress, other (in WC completing UE exercises) - EENT Eyes: EOM intact ENT: hearing intact - Neck Neck: supple, normal ROM - Respiratory Respiratory effort: normal Extremities: No edema - Integumentary Integumentary: clear - Musculoskeletal Musculoskeletal: left sided weakness - Neurologic Neurologic: CNII-XII intact - Psychiatric Psychiatric: appropriate mood/affect, intact judgment & insight, memory intact, cooperative - Allied health notes Allied health notes reviewed: PT (Kathryn for transfers; min-modA for gait) - Labs CBC & Chem 7: 06/06/16 04:45 06/06/16 04:45 Labs: Abnormal lab results 06/05/16 06/06/16 06/06/16 Range/Units 21:28 04:45 04:45 MCHC 35 H (32-34) % RDW 12.1 L (13.2-15.2) % Glucose 336 H (75-100) mg/dL POC Glucose 273 H (70-105) 06/06/16 06/06/16 06/06/16 Range/Units 06:12 11:59 16:34 MCHC (32-34) % RDW (13.2-15.2) % Glucose (75-100) mg/dL POC Glucose 279 H 261 H 253 H (70-105)
[2016-06-06] MEDS: AMBIEN PO SCH (21:06)
[2016-06-07] MEDS: PERCOCET 5/325 PO PRN ×2 (01:33→16:22)
[2016-06-07] MEDS: NOVOLOG SUB-Q SCH ×5 (05:47→23:06)
[2016-06-07] MEDS: HABITROL TD SCH (09:15)
[2016-06-07] MEDS: LEVEMIR SUB-Q SCH ×2 (09:15→23:02)
[2016-06-07] MEDS: NORVASC PO SCH (09:15)
[2016-06-07] MEDS: BABY ASPIRIN PO SCH (09:15)
[2016-06-07] MEDS: LOVENOX SUB-Q SCH (09:15)
[2016-06-07] MEDS: GLUCOPHAGE PO SCH ×2 (09:15→16:22)
[2016-06-07] MEDS: FLONASE NS SCH (09:15)
[2016-06-07] MEDS: LOPRESSOR PO SCH ×2 (09:15→23:00)
[2016-06-07] MEDS: CLARITIN PO SCH (09:15)
--- NOTE | 2016-06-07 17:30 | Progress Note ---
Assessment and Plan 55 y.o. left handed male with acute left cerebellar/medulla CVA, left hemiparesis - s/p CVA- ASA, statin - gait dysfunction secondary to CVA- ambulating only 59 feet on evaluation; now ambulating >150 feet - HTN- stable - DM- maintain on levemir 20U BID, metformin 1000mg BID - insomnia- ambien - headache- resolved; continue claritin, flonase daily; prn fioricet - DVT px- lovenox - Patient Problems (1) CVA (cerebral vascular accident) Current Visit: Yes Status: Acute Qualifiers: CVA mechanism: C Precerebral and cerebral artery: P Laterality of affected vessel: L (2) Hemiparesis affecting left side as late effect of cerebrovascular accident ( CVA) Current Visit: Yes Status: Acute (3) 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 (CVA) Current Visit: Yes Status: Acute (4) Cognitive deficit following cerebrovascular accident (CVA) Current Visit: Yes Status: Acute (5) Abnormality of gait following cerebrovascular accident (CVA) Current Visit: Yes Status: Acute (6) HTN (hypertension) Current Visit: Yes Status: Chronic Qualifiers: Hypertension type: essential hypertension Qualified Code(s): I10 - Essential (primary) hypertension (7) Diabetes Current Visit: Yes Status: Chronic Qualifiers: Diabetes mellitus type: type 2 Diabetes mellitus complication status: with hyperglycemia Diabetes mellitus complication detail: D Diabetic retinopathy severity: D Proliferative retinopathy type: P Diabetes mellitus macular edema: D Diabetes mellitus prison insulin use: without oysterman use Laterality: L Chronic kidney disease stage: C Qualified Code(s): E11.65 - Type 2 diabetes mellitus with hyperglycemia Subjective Date of service: 06/07/16 Principal diagnosis: acute left cerebellar/medulla CVA Interval history: Pt seen between therapies this AM; F/U IPR course, s/p acute left cerebellar/ medulla CVA. no complaints this AM; sleeping well Objective - Constitutional Vitals: Vital Signs - 12hr 06/07/16 08:51 Temperature 98.2 F Pulse Rate [ 92 H Left Brachial] Respiratory 20 Rate Blood Pressure 130/94 [Left Arm] O2 Sat by Pulse 96 Oximetry General appearance: Present: no acute distress - EENT Eyes: EOM intact ENT: hearing intact - Neck Neck: supple, normal ROM - Respiratory Respiratory effort: normal Respiratory: bilateral: CTA - Cardiovascular Rhythm: regular Heart Sounds: Present: S1 & S2 Extremities: No edema - Gastrointestinal General gastrointestinal: Present: soft, non-tender, non-distended, normal bowel sounds - Musculoskeletal Musculoskeletal: left sided weakness (4/5 UE ane LE) - Neurologic Neurologic: CNII-XII intact - Psychiatric Psychiatric: appropriate mood/affect, cooperative - Allied health notes Allied health notes reviewed: PT (min-CGA for transfers; CGA for gait), OT ( Lindsay for dressing; supervision for batihng) - Labs CBC & Chem 7: 06/06/16 04:45 06/06/16 04:45 Labs: Abnormal lab results 06/06/16 06/07/16 06/07/16 Range/Units 21:11 07:43 12:15 POC Glucose 269 H 184 H 259 H (70-105)
[2016-06-07] MEDS: AMBIEN PO SCH (20:38)
[2016-06-08] MEDS: NOVOLOG SUB-Q SCH ×4 (07:32→21:59)
[2016-06-08] MEDS: FLONASE NS SCH (08:49)
[2016-06-08] MEDS: NORVASC PO SCH (08:50)
[2016-06-08] MEDS: GLUCOPHAGE PO SCH ×2 (08:50→17:33)
[2016-06-08] MEDS: BABY ASPIRIN PO SCH (08:50)
[2016-06-08] MEDS: LOVENOX SUB-Q SCH (08:51)
[2016-06-08] MEDS: LEVEMIR SUB-Q SCH ×2 (08:51→22:43)
[2016-06-08] MEDS: LOPRESSOR PO SCH ×2 (08:51→21:58)
[2016-06-08] MEDS: HABITROL TD SCH (08:51)
[2016-06-08] MEDS: CLARITIN PO SCH (08:52)
--- NOTE | 2016-06-08 14:19 | Progress Note ---
Assessment and Plan 55 y.o. left handed male with acute left cerebellar/medulla CVA, left hemiparesis - s/p CVA- ASA, statin - gait dysfunction secondary to CVA- CGA for gait; CGA-Kathryn for transfers - HTN- stable - DM- maintain on levemir 20U BID, metformin 1000mg BID - insomnia- ambien - DVT px- lovenox - team conference held on today; at last conference (06/01/2016), pt was Lindsay for eating; supervision for grooming, bathing, dressing; Kathryn for toileting, toilet , shower transfers; CGA for sit-stand transfers; CGA for 90 feet with RW; CGA for stairs. On today, pt has progressed to Lindsay for dressing, toileting, toilet transfers and wheelchair mobility; independent with bed mobility; SBA for grooming, bathing, shower transfers; remains CGA for gait, however, now ambulating 250 feet; supervision with memory and problem solving. Pt would benefit from ongoing therapies to continue to improve functional independence with self care and mobility. Anticipate d/c home on 06/14/2016. Will educate on insulin to provide assistance with this at discharge. 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 (CVA) Current Visit: Yes Status: Acute (4) Cognitive deficit following cerebrovascular accident (CVA) Current Visit: Yes Status: Acute (5) Abnormality of gait following cerebrovascular accident (CVA) Current Visit: Yes Status: Acute (6) HTN (hypertension) Current Visit: Yes Status: Chronic Qualifiers: Hypertension type: essential hypertension Qualified Code(s): I10 - Essential (primary) hypertension (7) Diabetes Current Visit: Yes Status: Chronic Qualifiers: Diabetes mellitus type: type 2 Diabetes mellitus complication status: with hyperglycemia Diabetes mellitus complication detail: D Diabetic retinopathy severity: D Proliferative retinopathy type: P Diabetes mellitus macular edema: D Diabetes mellitus longterm insulin use: without longterm use Laterality: L Chronic kidney disease stage: C Qualified Code(s): E11.65 - Type 2 diabetes mellitus with hyperglycemia Subjective Date of service: 06/08/16 Principal diagnosis: acute left cerebellar/medulla CVA Interval history: Pt seen in room this AM; F/U IPR course, s/p acute left cerebellar/medulla CVA. no events overnight; per nursing, pt having difficulty with training on giving insulin Objective - Constitutional Vitals: Vital Signs - 12hr 06/08/16 06/08/16 08:50 08:56 Temperature 98.0 F Pulse Rate 82 Pulse Rate [ 82 Left From Monitor] Respiratory 18 Rate Blood Pressure 143/90 Blood Pressure 143/90 [Left Arm] O2 Sat by Pulse 100 Oximetry General appearance: Present: no acute distress - EENT Eyes: EOM intact ENT: hearing intact - Neck Neck: supple, normal ROM - Respiratory Respiratory effort: normal - Gastrointestinal General gastrointestinal: Present: soft, non-tender, non-distended - Integumentary Integumentary: clear, warm - Neurologic Neurologic: CNII-XII intact, moves all extremities - Psychiatric Psychiatric: appropriate mood/affect, cooperative - Labs CBC & Chem 7: 06/06/16 04:45 06/06/16 04:45 Labs: Abnormal lab results 06/07/16 06/07/16 Range/Units 17:00 21:20 POC Glucose 253 H 119 H (70-105)
[2016-06-08] MEDS: PERCOCET 5/325 PO PRN (21:58)
[2016-06-08] MEDS: AMBIEN PO SCH (21:58)
[2016-06-09] MEDS: NOVOLOG SUB-Q SCH ×4 (08:40→23:13)
[2016-06-09] MEDS: LOVENOX SUB-Q SCH (08:41)
[2016-06-09] MEDS: FLONASE NS SCH (08:41)
[2016-06-09] MEDS: LEVEMIR SUB-Q SCH ×2 (08:41→22:00)
[2016-06-09] MEDS: HABITROL TD SCH (08:41)
[2016-06-09] MEDS: LOPRESSOR PO SCH ×2 (08:42→22:00)
[2016-06-09] MEDS: CLARITIN PO SCH (08:42)
[2016-06-09] MEDS: BABY ASPIRIN PO SCH (08:42)
[2016-06-09] MEDS: GLUCOPHAGE PO SCH ×2 (08:42→17:28)
[2016-06-09] MEDS: NORVASC PO SCH (08:43)
[2016-06-09] MEDS ORDERED: SENOKOT PO PRN (15:45)
--- NOTE | 2016-06-09 17:01 | Progress Note ---
Assessment and Plan 55 y.o. left handed male with acute left cerebellar/medulla CVA, left hemiparesis - s/p CVA- ASA, statin - gait dysfunction secondary to CVA- progressing well with transfers, gait and stairs - HTN- stable - DM- levemir, metformin - insomnia- ambien - constipation- colace BID; senna prn - DVT px- lovenox 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 (CVA) Current Visit: Yes Status: Acute (4) Cognitive deficit following cerebrovascular accident (CVA) Current Visit: Yes Status: Acute (5) Abnormality of gait following cerebrovascular accident (CVA) Current Visit: Yes Status: Acute (6) HTN (hypertension) Current Visit: Yes Status: Chronic Qualifiers: Hypertension type: essential hypertension Qualified Code(s): I10 - Essential (primary) hypertension (7) Diabetes Current Visit: Yes Status: Chronic Qualifiers: Diabetes mellitus type: type 2 Diabetes mellitus complication status: with hyperglycemia Diabetes mellitus complication detail: D Diabetic retinopathy severity: D Proliferative retinopathy type: P Diabetes mellitus macular edema: D Diabetes mellitus extermination inspector insulin use: without [facility] use Laterality: L Chronic kidney disease stage: C Qualified Code(s): E11.65 - Type 2 diabetes mellitus with hyperglycemia (8) Constipation by delayed colonic transit Current Visit: Yes Status: Acute Subjective Date of service: 06/09/16 Principal diagnosis: acute left cerebellar/medulla CVA Interval history: Pt seen in room this afternoon; F/U IPR course, s/p acute left cerebellar/ medulla CVA. +constipation Objective - Constitutional Vitals: Vital Signs - 12hr 06/09/16 08:43 Pulse Rate 68 Blood Pressure 133/77 General appearance: Present: no acute distress - EENT Eyes: EOM intact ENT: hearing intact - Neck Neck: supple, normal ROM - Respiratory Respiratory effort: normal Extremities: No edema - Gastrointestinal General gastrointestinal: Present: soft, non-tender - Integumentary Integumentary: clear - Neurologic Neurologic: CNII-XII intact, moves all extremities - Psychiatric Psychiatric: appropriate mood/affect, cooperative - Allied health notes Allied health notes reviewed: nursing (Lindsay to supervision with ADLs), PT (Kathryn for transfers and gait; Lindsay for wheelchair mobility and bed mobility; CGA for stairs), ST (discharged on today) - Labs CBC & Chem 7: 06/06/16 04:45 06/06/16 04:45
[2016-06-09] MEDS: PERCOCET 5/325 PO PRN (22:00)
[2016-06-09] MEDS: AMBIEN PO SCH (22:00)
[2016-06-09] MEDS: COLACE PO SCH (23:10)
[2016-06-10] MEDS: LEVEMIR SUB-Q SCH ×2 (09:07→23:14)
[2016-06-10] MEDS: NOVOLOG SUB-Q SCH ×4 (09:07→23:14)
[2016-06-10] MEDS: CLARITIN PO SCH (09:08)
[2016-06-10] MEDS: GLUCOPHAGE PO SCH ×2 (09:08→17:18)
[2016-06-10] MEDS: COLACE PO SCH ×2 (09:08→22:36)
[2016-06-10] MEDS: BABY ASPIRIN PO SCH (09:08)
[2016-06-10] MEDS: NORVASC PO SCH (09:09)
[2016-06-10] MEDS: LOPRESSOR PO SCH ×2 (09:09→22:36)
[2016-06-10] MEDS: HABITROL TD SCH (09:10)
[2016-06-10] MEDS: FLONASE NS SCH (09:14)
[2016-06-10] MEDS: LOVENOX SUB-Q SCH (09:20)
[2016-06-10] MEDS: AMBIEN PO SCH (22:36)
[2016-06-11] MEDS: LEVEMIR SUB-Q SCH (09:10)
[2016-06-11] MEDS: NOVOLOG SUB-Q SCH ×3 (09:11→17:26)
[2016-06-11] MEDS: NORVASC PO SCH (09:11)
[2016-06-11] MEDS: LOPRESSOR PO SCH (09:12)
[2016-06-11] MEDS: GLUCOPHAGE PO SCH ×2 (09:13→17:26)
[2016-06-11] MEDS: CLARITIN PO SCH (09:13)
[2016-06-11] MEDS: LOVENOX SUB-Q SCH (09:13)
[2016-06-11] MEDS: COLACE PO SCH ×2 (09:13→22:00)
[2016-06-11] MEDS: BABY ASPIRIN PO SCH (09:13)
[2016-06-11] MEDS: HABITROL TD SCH (09:14)
[2016-06-11] MEDS: FLONASE NS SCH (09:18)
[2016-06-11] MEDS: AMBIEN PO SCH (21:00)
[2016-06-12] MEDS: LOPRESSOR PO SCH ×3 (00:21→22:32)
[2016-06-12] MEDS: NORVASC PO SCH (08:00)
[2016-06-12] MEDS: LEVEMIR SUB-Q SCH ×2 (08:48→22:51)
[2016-06-12] MEDS: NOVOLOG SUB-Q SCH ×4 (08:49→22:31)
[2016-06-12] MEDS: LOVENOX SUB-Q SCH (08:50)
[2016-06-12] MEDS: CLARITIN PO SCH (08:50)
[2016-06-12] MEDS: GLUCOPHAGE PO SCH ×2 (08:50→18:29)
[2016-06-12] MEDS: BABY ASPIRIN PO SCH (08:50)
[2016-06-12] MEDS: COLACE PO SCH ×2 (08:50→22:31)
[2016-06-12] MEDS: HABITROL TD SCH (08:51)
[2016-06-12] MEDS: FLONASE NS SCH (08:57)
[2016-06-12] MEDS: PERCOCET 5/325 PO PRN (15:14)
--- NOTE | 2016-06-12 16:38 | Progress Note ---
Assessment and Plan 55 y.o. left handed male with acute left cerebellar/medulla CVA, left hemiparesis - s/p CVA- ASA, statin - gait dysfunction secondary to CVA- much improved gait distance and level of independence with ambulation; now CGA-SBA - HTN- stable - DM- levemir, metformin; changed to medium dose sliding scale; will continue mealtime sliding scale at discharge - insomnia- ambien - constipation- resolved; continue colace BID; senna prn - DVT px- lovenox 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 (CVA) Current Visit: Yes Status: Acute (4) Cognitive deficit following cerebrovascular accident (CVA) Current Visit: Yes Status: Acute (5) Abnormality of gait following cerebrovascular accident (CVA) Current Visit: Yes Status: Acute (6) HTN (hypertension) Current Visit: Yes Status: Chronic Qualifiers: Hypertension type: essential hypertension Qualified Code(s): I10 - Essential (primary) hypertension (7) Diabetes Current Visit: Yes Status: Chronic Qualifiers: Diabetes mellitus type: type 2 Diabetes mellitus complication status: with hyperglycemia Diabetes mellitus complication detail: D Diabetic retinopathy severity: D Proliferative retinopathy type: P Diabetes mellitus macular edema: D Diabetes mellitus superintendent terminal insulin use: without superintendent terminal use Laterality: L Chronic kidney disease stage: C Qualified Code(s): E11.65 - Type 2 diabetes mellitus with hyperglycemia Subjective Date of service: 06/12/16 Principal diagnosis: acute left cerebellar/medulla CVA Interval history: Pt seen in PT gym this afternoon; F/U IPR course, s/p acute left cerebellar/ medulla CVA. No new complaints on today; reports doing well and being excited for discharge home; family training completed on today with Objective - Constitutional Vitals: Vital Signs - 12hr 06/12/16 06/12/16 06/12/16 07:30 08:51 15:14 Temperature 98.5 F Pulse Rate 88 Pulse Rate [ 88 Left Brachial] Respiratory 20 20 Rate Blood Pressure 123/83 Blood Pressure 123/83 [Left Arm] O2 Sat by Pulse 99 Oximetry General appearance: Present: no acute distress - EENT Eyes: EOM intact ENT: hearing intact - Neck Neck: supple, normal ROM - Respiratory Respiratory effort: normal Respiratory: bilateral: CTA - Cardiovascular Rhythm: regular Heart Sounds: Present: S1 & S2 Extremities: No edema - Gastrointestinal General gastrointestinal: Present: soft, non-tender, non-distended, normal bowel sounds - Integumentary Integumentary: clear - Neurologic Neurologic: CNII-XII intact, moves all extremities - Psychiatric Psychiatric: appropriate mood/affect, intact judgment & insight, memory intact, cooperative - Allied health notes Allied health notes reviewed: PT (SBA for transfers; CGA-SBA for gait), OT ( Lindsay to supervision for ADLs) - Labs CBC & Chem 7: 06/06/16 04:45 06/06/16 04:45 Labs: Abnormal lab results 06/08/16 06/08/16 06/08/16 Range/Units 06:13 12:00 16:56 POC Glucose 236 H 181 H 192 H (70-105) 06/08/16 06/09/16 06/09/16 Range/Units 21:02 05:51 12:17 POC Glucose 245 H 266 H 279 H (70-105) 06/09/16 06/09/16 06/10/16 Range/Units 16:59 21:19 07:07 POC Glucose 278 H 206 H 208 H (70-105) 06/10/16 06/10/16 06/10/16 Range/Units 12:03 16:38 21:36 POC Glucose 256 H 202 H 217 H (70-105) 06/11/16 06/11/16 06/11/16 Range/Units 06:35 11:45 16:45 POC Glucose 201 H 283 H 216 H (70-105) 06/11/16 06/12/16 06/12/16 Range/Units 21:22 07:08 12:11 POC Glucose 242 H 169 H 260 H (70-105)
[2016-06-12] MEDS: AMBIEN PO SCH (22:31)
[2016-06-13] MEDS: NOVOLOG SUB-Q SCH ×4 (07:54→21:25)
[2016-06-13] MEDS: LOVENOX SUB-Q SCH (07:55)
[2016-06-13] MEDS: LEVEMIR SUB-Q SCH ×2 (07:56→21:24)
[2016-06-13] MEDS: GLUCOPHAGE PO SCH ×2 (07:59→17:30)
[2016-06-13] MEDS: BABY ASPIRIN PO SCH (07:59)
[2016-06-13] MEDS: CLARITIN PO SCH (07:59)
[2016-06-13] MEDS: NORVASC PO SCH (08:05)
[2016-06-13] MEDS: LOPRESSOR PO SCH ×2 (08:05→21:10)
[2016-06-13] MEDS: FLONASE NS SCH (08:08)
[2016-06-13] MEDS: COLACE PO SCH ×2 (08:09→21:10)
[2016-06-13] MEDS: HABITROL TD SCH (09:04)
--- NOTE | 2016-06-13 17:01 | Progress Note ---
Assessment and Plan 55 y.o. left handed male with acute left cerebellar/medulla CVA, left hemiparesis - s/p CVA- ASA, statin - gait dysfunction secondary to CVA- remains CGA-SBA - HTN- stable - DM- levemir, metformin; continue moderate dose sliding scale - insomnia- ambien - DVT px- lovenox 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 (CVA) Current Visit: Yes Status: Acute (4) Cognitive deficit following cerebrovascular accident (CVA) Current Visit: Yes Status: Acute (5) Abnormality of gait following cerebrovascular accident (CVA) Current Visit: Yes Status: Acute (6) HTN (hypertension) Current Visit: Yes Status: Chronic Qualifiers: Hypertension type: essential hypertension Qualified Code(s): I10 - Essential (primary) hypertension (7) Diabetes Current Visit: Yes Status: Chronic Qualifiers: Diabetes mellitus type: type 2 Diabetes mellitus complication status: with hyperglycemia Diabetes mellitus complication detail: D Diabetic retinopathy severity: D Proliferative retinopathy type: P Diabetes mellitus macular edema: D Diabetes mellitus terminal system operator insulin use: without terminal system operator use Laterality: L Chronic kidney disease stage: C Qualified Code(s): E11.65 - Type 2 diabetes mellitus with hyperglycemia Subjective Date of service: 06/13/16 Principal diagnosis: acute left cerebellar/medulla CVA Interval history: Pt seen this afternoon in dining room; F/U IPR course, s/p acute left cerebellar /medulla CVA. No new complaints; long discussion held with and patient regarding medications at discharge Objective - Constitutional Vitals: Vital Signs - 12hr 06/13/16 06/13/16 08:05 08:30 Temperature 98.3 F Pulse Rate 93 H Pulse Rate [ 94 H Left Brachial] Respiratory 20 Rate Blood Pressure 140/93 Blood Pressure 140/96 [Left Arm] O2 Sat by Pulse 100 Oximetry General appearance: Present: no acute distress - EENT Eyes: EOM intact ENT: hearing intact - Neck Neck: supple, normal ROM - Respiratory Respiratory effort: normal Extremities: No edema - Integumentary Integumentary: clear - Neurologic Neurologic: CNII-XII intact, moves all extremities - Psychiatric Psychiatric: appropriate mood/affect, cooperative - Allied health notes Allied health notes reviewed: PT (CGA/SBA for transfers and gait), OT (Lindsay for transfers, bathing/dressing) - Labs CBC & Chem 7: 06/06/16 04:45 06/06/16 04:45 Labs: Abnormal lab results 06/12/16 06/12/16 06/13/16 Range/Units 17:01 22:05 06:35 POC Glucose 171 H 209 H 163 H (70-105) 06/13/16 Range/Units 11:55 POC Glucose 156 H (70-105)
[2016-06-13] MEDS: FIORICET PO PRN (17:33)
[2016-06-13] MEDS: AMBIEN PO SCH (21:10)
[2016-06-14] MEDS: LEVEMIR SUB-Q SCH (07:44)
[2016-06-14] MEDS: LOVENOX SUB-Q SCH (07:45)
[2016-06-14] MEDS: GLUCOPHAGE PO SCH (07:45)
[2016-06-14] MEDS: BABY ASPIRIN PO SCH (07:46)
[2016-06-14] MEDS: LOPRESSOR PO SCH (07:46)
[2016-06-14] MEDS: CLARITIN PO SCH (07:47)
[2016-06-14] MEDS: HABITROL TD SCH (07:47)
[2016-06-14] MEDS: NORVASC PO SCH (07:47)
[2016-06-14] MEDS: NOVOLOG SUB-Q SCH ×2 (07:48→12:00)
[2016-06-14 07:49] VITALS: BP 135/94
[2016-06-14] MEDS: FLONASE NS SCH (07:51)
[2016-06-14] MEDS: COLACE PO SCH (07:53)
--- NOTE | 2016-06-14 10:12 | Discharge Summary ---
Providers - Providers Date of Admission: 05/26/16 20:57 Date of discharge: 06/14/16 Attending physician: CECY MARTINEZ 05/26/16 21:03 Occupational Therapy Evaluate and Treat [CONS] Routine Comment: Reason For Exam: s/p CVA Physical Therapy Evaluation and Treat [CONS] Routine Comment: Reason For Exam: s/p CVA Speech Therapy Evaluation and Treat [CONS] Routine Reason For Exam: s/p CVA; dysaphagia Primary care physician: Dr. Meenakshi Coleman Hospitalization Reason for admission: s/p Left cerebellar CVA Condition: Stable Hospital course: 55 y.o. left handed male who presented to [facility] with complaints of progressive left sided weakness over several days prior to admission; associated blurry vision and gait dysfunction. MRI confirmed left cerebellar/ medulla CVA. Pt was also noted to have dysarthria and dysphagia; placed on mechanical soft diet with nectar thickened liquids. Pt continued with weakness and functional deficits; admitted to IRU for aggressive therapies and ongoing medical management. IRU course notable for intermittent hiccups and headaches; gradually resolved. Headache controlled with prn pain meds, flonase, and claritin. DM and HTN management improved with medication adjustments. Functionally, pt progressed well with therapies. On admission, pt required Kathryn /CGA for bed mobility, transfers, gait; ambulating 59 feet with RW; supervision for eating, grooming, UB dressing; Kathryn for toileting; modA for shower/toilet transfers, LB dressing, bathing. At the time of discharge, pt progressed to Lindsay for bed and wheelchair mobility, sit/stand transfers; supervision for gait 340 feet with FWW; Lindsay for ADLs, except SBA for shower transfers. Pt completed family training with prior to d/c. Pt is stable for d/c home. 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 (CVA) Status: Acute (4) Cognitive deficit following cerebrovascular accident (CVA) Status: Acute (5) Abnormality of gait following cerebrovascular accident (CVA) Status: Acute (6) HTN (hypertension) Status: Chronic Qualifiers: Hypertension type: essential hypertension Qualified Code(s): I10 - Essential (primary) hypertension (7) Diabetes Status: Chronic Qualifiers: Diabetes mellitus type: type 2 Diabetes mellitus complication status: with hyperglycemia Diabetes mellitus complication detail: D Diabetic retinopathy severity: D Proliferative retinopathy type: P Diabetes mellitus macular edema: D Diabetes mellitus intermodal dispatcher insulin use: without alf use Laterality: L Chronic kidney disease stage: C Qualified Code(s): E11.65 - Type 2 diabetes mellitus with hyperglycemia Core Measure Documentation - Palliative Care Palliative Care/ Comfort Measures: Not Applicable - Core Measures Any of the following diagnoses?: stroke - Stroke Discharge Requirements Statin for LDL = or >70 mg/dl on DC: Yes Anticoag for atrial fib/atrial flutter: Not Applicable Antithrombotic for ischemic stroke: Yes Exam - Constitutional Vitals: Temp Pulse Resp BP Pulse Ox 97.9 F 90 20 135/94 97 06/14/16 08:40 06/14/16 08:40 06/14/16 08:40 06/14/16 08:40 06/14/16 08:40 General appearance: Present: no acute distress - EENT Eyes: Present: EOM intact ENT: hearing intact - Neck Neck: Present: supple, normal ROM - Respiratory Respiratory effort: normal - Extremities Extremities: No edema - Abdominal General gastrointestinal: Present: soft, non-tender, non-distended - Integumentary Integumentary: Present: clear - Psychiatric Psychiatric: appropriate mood/affect, intact judgment & insight, memory intact, cooperative - Neurologic Neurologic: CNII-XII intact, moves all extremities Plan Activity: no driving until cleared by PCP, fall precautions Weight Bearing Status: Full Weight Bearing Diet: low cholesterol, low salt, diabetic Special Instructions: physical therapy, occupational therapy, other (outpt therapies at [facility]) Durable Medical Equipment Needed Upon Discharge: Walker-Rolling, Wheelchair, Bedside Commode, other ([facility] [place]) Follow up with: MEENAKSHI COLEMAN MD [Staff Physician] - 7 Days JAY GUTIÉRREZ MD [Referring] - 7 Days Prescriptions: Zolpidem [Ambien] 5 mg PO QHS #30 tablet Insulin Aspart [NovoLOG Flexpen] See Protocol SQ AC 30 Days Insulin Detemir [Levemir] 22 units SUB-Q BID 30 Days metFORMIN [Glucophage] 1,000 mg PO BIDDIAB #120 tablet Metoprolol [Lopressor TAB] 25 mg PO BID #60 tablet Nicotine [Habitrol] 14 mg TD QDAY #30 patch oxyCODONE /ACETAMINOPHEN [Percocet 5/325 mg] 1 tab PO Q6H PRN #30 tablet PRN Reason: Pain, Moderate (4-6)
== END 2016-06-14 14:10 | disposition home or self-care (01) | DRG 65 ==
LOC: 3B 20:57
PROVIDERS: ADMIT Family Medicine; ATTEND Family Medicine
DX: I63.8 Other cerebral infarction (principal); G81.92 Hemiplegia, unspecified affecting left dominant side; I10 Essential (primary) hypertension; R47.1 Dysarthria and anarthria; R41.89 Other symptoms and signs involving cognitive functions and awareness; R26.9 Unspecified abnormalities of gait and mobility; G47.00 Insomnia, unspecified; K59.01 Slow transit constipation; E11.65 Type 2 diabetes mellitus with hyperglycemia; R06.6 Hiccough; R00.0 Tachycardia, unspecified; Z83.3 Family history of diabetes mellitus; Z79.4 Long term (current) use of insulin
CPT/HCPCS: 36415; 80048; 80053; 82962; 85025; 85027; A9270-GY; J1650; J1815; J1818; Q0161; Q0169